=== PATIENT | male | born 1975 | race Caucasian/White ===

== ENCOUNTER → 2020-10-31 10:17 | Outpatient (CLI) | payer OTHER, SELFPAY ==
--- NOTE | 2020-10-31 10:18 | CT_ITS ---
PROCEDURE: CT CHEST WO CON CLINICAL INDICATION: enlarged aorta COMPARISON: No exams were available for comparison TECHNIQUE: Axial images obtained with sagittal and coronal reformats. All CT scans at the facility use one or more dose reduction, viz: automated exposure control, ma/kV adjustment per patient size (including targeted exams where dose is matched to indication, i.e. head), or iterative reconstruction technique. FINDINGS: HEART AND MEDIASTINAL STRUCTURES: There are few small mediastinal lymph nodes. No enlarged nodes apparent. Minimal coronary artery calcification. The supravalvular portion of the thoracic aorta measures 4.5 by 4.3 cm. The mid aspect of the ascending aorta is 3 cm. Descending thoracic aorta has an unremarkable appearance. LUNGS AND PLEURAL SPACES: There is a 5 mm noncalcified nodule within the right middle lobe. Minimal atelectatic or fibrotic changes are present in the left lung base. 3 mm subpleural nodule left lower lobe image 49 series 3 BONY STRUCTURES: 5 mm subarticular cyst involves the humeral head UPPER ABDOMEN: Hyperdensity noted in the upper pole of the right kidney which is incompletely imaged with an average density of 105 Hounsfield units. Hyperdense cyst is a consideration however this is incompletely imaged. ADDITIONAL FINDINGS: No other significant abnormalities. IMPRESSION: Enlarged supravalvular portion of the ascending aorta at 4.5 x 4.3 cm. 5 mm noncalcified nodule right middle lobe. Consider six-month follow-up to confirm stability. Incompletely imaged hyperdensity upper pole right kidney which could be due to a hyperdense cyst. Dedicated CT abdomen without and with contrast may provide further evaluation Dictated by: Piero Cervantes MD 10/31/2020 11:48 Piero Cervantes MD in [place] 10/31/2020 11:48
== END ==
PROVIDERS: PCP Nurse Practitioner; Visit Provider Internal Medicine Cardiovascular Disease
DX: I77.89 Other specified disorders of arteries and arterioles (principal); R60.9 Edema, unspecified; Z82.49 Family history of ischemic heart disease and other diseases of the circulatory system
CPT/HCPCS: 71250

== ENCOUNTER → 2020-12-01 09:02 | Outpatient (CLI) | payer OTHER, SELFPAY ==
[2020-12-01 10:18] LABS: NT Pro Brain Natriuretic Pep. 48.7 pg/mL (0-125)
[2020-12-01 10:57] LABS: Chloride 102 mmol/L (98-107); Potassium 4.3 mmoL/L (3.5-5.1); Sodium 138 mmol/L (136-145)
[2020-12-01 11:00] LABS: Anion Gap 13.3 mEq/L (5-15); Blood Urea Nitrogen 14 mg/dl (9-20); Calcium 8.9 mg/dl (8.4-10.2); Carbon Dioxide 27 mmol/L (22.0-30.0); Estimated Glomerular Filt Rate 80 ml/min (>60); GFR (African American) 97 ML/MIN (>60); Glucose 98 mg/dl (74-100)
== END ==
PROVIDERS: Visit Provider Internal Medicine Cardiovascular Disease
DX: R42 Dizziness and giddiness (principal); R60.9 Edema, unspecified; I25.10 Atherosclerotic heart disease of native coronary artery without angina pectoris; I71.2 Thoracic aortic aneurysm, without rupture; I77.89 Other specified disorders of arteries and arterioles; I87.2 Venous insufficiency (chronic) (peripheral); Z82.49 Family history of ischemic heart disease and other diseases of the circulatory system
CPT/HCPCS: 36415; 80048; 83880

== ENCOUNTER → 2022-01-02 10:22 | Outpatient (CLI) | payer OTHER, SELFPAY | PROVIDERS: PCP Nurse Practitioner; Visit Provider Internal Medicine Pulmonary Disease | DX: R06.09 Other forms of dyspnea (principal) | CPT/HCPCS: 94060; 94618; 94726; 94729 ==

== ENCOUNTER → 2022-01-17 12:27 | Outpatient (CLI) | payer OTHER, SELFPAY ==
--- NOTE | 2022-01-17 12:34 | CT_ITS ---
FINAL REPORT CLINICAL HISTORY: nodule F/U COMPARISON: October 2020 FINDINGS: Axial images were obtained from the lung apex to the mid abdomen by computed tomography. Coronal reformatted images were obtained. This study was performed with techniques to keep radiation doses as low as reasonably achievable, (ALARA). Individualized dose reduction techniques using automated exposure control or adjustment of mA and/or kV according to the patient's size were employed. There is no axillary adenopathy. There is no hilar or mediastinal adenopathy. There is mild left coronary artery calcification. Heart size is normal. There is no pericardial or pleural effusion. Limited images of the upper abdomen are unremarkable. The 6 mm right middle lobe nodule previously measured 6 mm. There is a stable 6 mm nodule in the medial left lower lobe. There are no new masses or pulmonary nodules. IMPRESSION: Stable pulmonary nodules. Most likely benign. Recommend additional follow-up in 12 months. Reviewed, Interpreted and Dictated by Frank Tovar III, MD Transcribed by Godwin Paul Authenticated and [facility]
== END ==
PROVIDERS: Visit Provider Internal Medicine Pulmonary Disease
DX: R91.8 Other nonspecific abnormal finding of lung field (principal)
CPT/HCPCS: 71250

== ENCOUNTER → 2022-05-01 14:16 | Outpatient (CLI) | payer BC, SELFPAY ==
--- NOTE | 2022-05-01 14:16 | CT_ITS ---
FINAL REPORT TECHNIQUE: Thin section axial CT images were obtained from the lung apices to the upper abdomen. IV contrast was administered. MIP 3-D reformats were obtained. This study was performed with techniques to keep radiation doses as low as reasonably achievable (ALARA). Individualized dose reduction techniques using automated exposure control or adjustment of mA and/or kV according to the patient's size were employed. CLINICAL HISTORY: aneurysm assessment. COMPARISON: December 2021 FINDINGS: The heart size is normal. There is no adenopathy. There is no filling defect to suggest PE. The supravalvular ascending aorta is stable measuring 4.4 cm. There is no aortic dissection. There is no pericardial effusion. A 6 mm nodule in the periphery of the right middle lobe on image 48 of series 3 is stable. The medial left lower lobe nodule is less well seen but probably stable on image 51 of series 3. No pleural effusion. Limited images of the upper abdomen demonstrate no acute abnormality. IMPRESSION: Stable appearance of the supravalvular ascending aorta. Stable pulmonary nodules. Reviewed, Interpreted and Dictated by Tyrell Anna MD Transcribed by Godwin Paul Authenticated and [facility]
[2022-05-01 14:56] LABS: Blood Urea Nitrogen 13 mg/dl (9-20); Estimated Glomerular Filt Rate 71 ml/min (>60); GFR (African American) 86 ML/MIN (>60)
== END ==
LOC: RAD 14:16
PROVIDERS: PCP Internal Medicine; Visit Provider Internal Medicine Cardiovascular Disease
DX: I71.20 Thoracic aortic aneurysm, without rupture, unspecified (principal)
CPT/HCPCS: 36415; 71275; 82565; 84520; Q9967

== ENCOUNTER 2023-06-21 10:07 | Outpatient (CLI) | payer BC, SELFPAY ==
--- NOTE | 2023-06-21 10:14 | CT_ITS ---
FINAL REPORT TECHNIQUE: Thin section axial CT images were obtained from the lung apices to the upper abdomen. IV contrast was administered. MIP 3-D reformats were obtained. This study was performed with techniques to keep radiation doses as low as reasonably achievable (ALARA). Individualized dose reduction techniques using automated exposure control or adjustment of mA and/or kV according to the patient's size were employed. CLINICAL HISTORY: Ascending aortic aneurysm COMPARISON: 05/01/2022 FINDINGS: The heart size is normal. There is mild left hilar adenopathy measuring up to 15 mm. On coronal imaging the aortic sinus measures 47 mm, previously 46 mm. The mid ascending aorta measures 31 mm, unchanged. There is no pericardial effusion. There is central left lower lobe opacity may represent pneumonia, less likely neoplasm. This obscures the left hilar structures and new from the prior exam. The right lung is clear. No pleural effusion. IMPRESSION: Stable aneurysm of the aortic sinus. New soft tissue opacity left lower lobe retrohilar region, favor pneumonia although neoplasm not excluded. Recommend follow-up chest CT in 2 to 3 months. Reviewed, Interpreted and Dictated by Demarcus Schwartz MD Transcribed by SAIMA Galvan Authenticated and . [facility]
[2023-06-21 10:36] LABS: Blood Urea Nitrogen 17 mg/dl (9-20); Estimated Glomerular Filt Rate 64 ml/min (>60); GFR (African American) 78 ML/MIN (>60)
[2023-06-21] MEDS: SODIUM CHLORIDE 0.9% 10ML SYR (RAD ONLY) 10 ML IV (11:15)
[2023-06-21] MEDS: 0.9 % SODIUM CHLORIDE 50 ML VIAL IV (11:15)
[2023-06-21] MEDS: IOPAMIDOL-370 (76%);100ML BOTTLE 100 ML IV (11:16)
== END 2023-06-21 23:59 ==
LOC: RAD 10:08
PROVIDERS: Visit Provider Physician Assistant
DX: I71.20 Thoracic aortic aneurysm, without rupture, unspecified (principal); I25.10 Atherosclerotic heart disease of native coronary artery without angina pectoris; R91.8 Other nonspecific abnormal finding of lung field
CPT/HCPCS: 36415; 71275; 82565; 84520; Q9967

== ENCOUNTER 2023-10-28 09:24 | Outpatient (CLI) | payer BC, SELFPAY ==
[2023-10-28 09:53] LABS: Basophils # 0.1 K/mm3 (0-0.2); Basophils % 1.2 % (0.1-2.0); Eosinophils # 0.2 K/mm3 (0.0-0.4); Eosinophils % 2.4 % (0.1-12.0); Hematocrit 48.6 % (42.0-52.0); Hemoglobin 16.5 g/dL (14.1-18.0); Lymphocytes % 16.4 % (10-50); Mean Corpuscular Volume 91.2 fl (80-94); Mean Platelet Volume 8.8 fl (7.4-10.4); Monocytes # 0.4 K/mm3 (0.1-1.0); Monocytes % 7.3 % (1.7-9.3); Neutrophils # 4.4 K/mm3 (1.8-7.8); Neutrophils % 72.7 % (37.0-80.0); Platelet Count 253 K/mm3 (142-424); Red Blood Count 5.33 M/mm3 (4.60-6.20); White Blood Count 6.1 K/mm3 (4.8-10.8)
[2023-10-28 10:47] LABS: Free T4 (Free Thyroxine) 0.85 ng/dl (0.78-2.19)
[2023-10-28 10:50] LABS: Free Thyroxine Index 2.3 ug/dL (5.93-13.13); T4 (Thyroxine) 7.9 ug/dl (5.53-11.0); Triiodothryronine (T3) Uptake 29 % (23.5-40.5)
[2023-10-28 11:03] LABS: Thyroid Stimulating Hormone 1.65 uIU/mL (0.465-4.68)
[2023-10-28 12:09] LABS: Alanine Aminotransferase 41 U/L (12-78); Albumin Level 4.1 g/dl (3.5-5.0); Alkaline Phosphatase 61 U/L (38-126); Anion Gap 10.8 mEq/L (5-15); Aspartate Amino Transferase 31 U/L (17-59); Blood Urea Nitrogen 17 mg/dl (9-20); Calcium 9.2 mg/dl (8.4-10.2); Carbon Dioxide 30 mmol/L (22.0-30.0); Chloride 102 mmol/L (98-107); Chol/HDL Ratio 3.8 (1-3.5); Cholesterol 126 mg/dl (140-200); Estimated Glomerular Filt Rate 71 ml/min (>60); GFR (African American) 86 ML/MIN (>60); Glucose 89 mg/dl (74-100); HDL Cholesterol 33 mg/dl (40-60); Potassium 4.8 mmoL/L (3.5-5.1); Sodium 138 mmol/L (136-145); Total Protein,Serum 6.6 g/dl (6.3-8.2); Triglycerides 134 mg/dl (30-150); VLDL Cholesterol 27 mg/dL (0-40)
[2023-10-28 13:03] LABS: Direct LDL Cholesterol 63.74 mg/dL (100-129)
[2023-10-28 13:25] LABS: Thyroid Stimulating Hormone 1.65 uIU/mL (0.465-4.68)
== END 2023-10-28 23:59 | disposition home or self-care (01) ==
LOC: LAB 09:25
PROVIDERS: Visit Provider Physician Assistant
DX: I10 Essential (primary) hypertension (principal); E78.2 Mixed hyperlipidemia; I71.21 Aneurysm of the ascending aorta, without rupture; N52.9 Male erectile dysfunction, unspecified; R91.8 Other nonspecific abnormal finding of lung field
CPT/HCPCS: 36415; 80048; 80061; 80076; 84436; 84439; 84443; 84479; 85025

== ENCOUNTER 2024-06-08 08:23 | Outpatient (CLI) | payer OTHER, SELFPAY ==
--- NOTE | 2024-06-08 08:31 | CT_ITS ---
FINAL REPORT TECHNIQUE: Thin section axial CT with contrast with multiplanar reconstruction This study was performed with techniques to keep radiation doses as low as reasonably achievable, (ALARA). Individualized dose reduction techniques using automated exposure control or adjustment of mA and/or kV according to the patient's size were employed. CLINICAL HISTORY: thoracic aortic aneursym COMPARISON: CT chest 11/14/2023 CTA chest 06/21/2023 FINDINGS: CTA CHEST: Pulmonary vessels enhance in normal fashion without evidence of embolism. There is a persistent aneurysm of the aortic sinus which measures up to 47 mm in diameter, stable since the most recent CTA of the chest dated 06/21/2023. The mid ascending aorta is normal in caliber, measuring 29 mm in diameter. There is a bovine branching pattern of the aorta again noted. No pulmonary mass or infiltrate is present. The 4 mm pulmonary nodule noted in the right middle lobe on the prior exam of 11/14/2023 remains present and is best seen on image #51 of series 3. No new pulmonary nodules are identified. There is no significant pleural effusion. There is no significant pericardial effusion. No mediastinal or hilar adenopathy is present. 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 4 mm nodule in the right middle lobe, stable. No new pulmonary nodules are identified. Reviewed, Interpreted and Dictated by Demarcus Schwartz MD Transcribed by Devi Clark Authenticated and . [facility]
[2024-06-08 08:59] LABS: Blood Urea Nitrogen 13 mg/dl (9-20); Estimated Glomerular Filt Rate 58 ml/min (>60); GFR (African American) 70 ML/MIN (>60)
[2024-06-08] MEDS: IOPAMIDOL-370 (76%);100ML BOTTLE 100 ML IV (09:18)
[2024-06-08] MEDS: SODIUM CHLORIDE 0.9% 10ML SYR (RAD ONLY) 10 ML IV (09:18)
[2024-06-08] MEDS: 0.9 % SODIUM CHLORIDE 50 ML VIAL IV (09:18)
== END 2024-06-08 23:59 | disposition home or self-care (01) ==
PROVIDERS: Visit Provider Physician Assistant
DX: I25.10 Atherosclerotic heart disease of native coronary artery without angina pectoris (principal); I71.21 Aneurysm of the ascending aorta, without rupture; I10 Essential (primary) hypertension; E78.5 Hyperlipidemia, unspecified
CPT/HCPCS: 36415; 71275; 82565; 84520; Q9967